=== PATIENT | female | born 1955 | race Caucasian/White ===

== ENCOUNTER 2016-12-09 08:38 | Emergency (ER) | payer MEDICARE, OTHER ==
[2016-12-09] MEDS ORDERED: Albuterol/Ipratropium 3.0-0.5 MG/3 ML Neb Soln NEB ONE (09:41)
[2016-12-09] MEDS ORDERED: predniSONE 20 MG Tab PO ONE (09:41)
--- NOTE | 2016-12-09 09:42 | EDM.PDOC ---
ED HPI GENERAL MEDICAL PROBLEM - General Chief Complaint: Respiratory Problem Stated Complaint: BREATHING PROBLEMS Time Seen by Provider: 12/09/16 09:17 Source of Information: Reports: Patient, Family History Limitations: Reports: No Limitations - History of Present Illness INITIAL COMMENTS - FREE TEXT/NARRATIVE: HISTORY AND PHYSICAL: History of present illness: [61-year-old female with no significant past medical history no prior pulmonary history, now presents to the emergency department complaining of persistent cough for more than a month intermittently productive sometimes with wheezing. Patient was initially seen about 6 weeks ago prescribed a Z-Kwaku steroids and inhaler. Her symptoms improved somewhat but returned. She was seen more recently and told that she had asthma. Patient has not been on any antibiotics last 6 weeks. Denies fevers chills sweats or shaking chills. She has not been out of the country nor been in any high risk environments for tuberculosis transmission. she smoked briefly in her 20s no history of asthma second hand smoke or occupational dust or smoke exposure. Patient states she does have a history of seasonal allergies. Patient had a recent negative chest x-ray at and ER in [place]. She is traveling away from home for months Review of systems: As per history of present illness and below otherwise all systems reviewed and negative. Past medical history: As per history of present illness and as reviewed below otherwise noncontributory. Surgical history: As per history of present illness and as reviewed below otherwise noncontributory. Social history: No reported history of drug or alcohol abuse. Family history: As per history of present illness and as reviewed below otherwise noncontributory. Physical exam: Patient is well-appearing no acute distress no tachypnea normal respiratory rate and pulse ox alert and communicative wearing her own TB mask which she uses chronically to shield herself from environmental allergens HEENT: Atraumatic, normocephalic, pupils reactive, negative for conjunctival pallor or scleral icterus, mucous membranes moist, throat clear, neck supple, nontender, trachea midline. Lungs: Clear to auscultation, breath sounds equal bilaterally, chest nontender. Heart: S1S2, regular, negative for clicks, rubs, or JVD. Abdomen: Soft, nondistended, nontender. Negative for masses or hepatosplenomegaly. Negative for costovertebral tenderness. Pelvis: Stable nontender. Genitourinary: Deferred. Rectal: Deferred. Extremities: Atraumatic, negative for cords or calf pain. Neurovascular unremarkable. Neuro: Awake, alert, oriented. Cranial nerves grossly unremarkable. Cerebellum unremarkable. Motor and sensory unremarkable throughout. Exam nonfocal. Diagnostics: [Chest x-ray PA and lateral No consolidated infiltrate and interpreted by me report reviewed] Therapeutics: [DuoNeb] Impression: [Atypical pneumonia] Plan: [Signs and symptoms consistent with persistent lung condition of 6 weeks ago suggestive of walking pneumonia versus less likely pertussis patient does have a mild bronchospastic component however those findings of bronchospasm a unilateral today on the left. Chest x-ray PA and lateral pending. Nebulize therapy administered as well as steroids] Signs and symptoms consistent with pulmonary infection atypical pneumonia versus bacterial pneumonia. Patient is well-appearing with normal respiratory rate and pulse ox multiple reexamines. Chest x-ray with no consolidated infiltrate and history consistent with atypical pneumonia. Doxycycline prescription dispensed. Patient is aware to continue use her inhalers including a steroid inhaler as needed. Recommended her to use Mucinex DM [id number] as well as salon as present prescribed. Patient will follow with PCP for reevaluation and if her symptoms do not resolve eventually she could be referred to a child day care center worker. Definitive disposition and diagnosis as appropriate pending reevaluation and review of above. chest pressure Pain Score (Numeric/FACES): 3 - Related Data Allergies Allergy/AdvReac Type Severity Reaction Status Date / Time No Known Allergies Allergy Verified 12/09/16 08:53 Home Meds: Home Meds Albuterol Sulfate [Proair Hfa] 8.5 gm IH BID PRN 12/09/16 [History] Benzonatate [Tessalon Perles] 100 mg PO TID 12/09/16 [History] Doxycycline [Vibramycin] 100 mg PO Q12HR #20 cap 12/09/16 [Rx] Fluticasone Propionate [Flovent] 1 puff IH BID 12/09/16 [History] Ipratropium/Albuterol Sulfate [Combivent Respimat Inhal [employer]] 4 gm IH DAILY [History] Loratadine/Pseudoephedrine [Claritin-D 24 Hour Tablet] 1 each PO DAILY 12/09/16 [History] predniSONE 20 mg PO ONETIME 12/09/16 [History] Past Medical History Cardiovascular History: Reports: Hypertension Respiratory History: Reports: Asthma Gastrointestinal History: Reports: Cholelithiasis Musculoskeletal History: Reports: Fibromyalgia - Past Surgical History HEENT Surgical History: Reports: Tonsillectomy GI Surgical History: Reports: Cholecystectomy Female Surgical History: Reports: Hysterectomy Dermatological Surgical History: Reports: Other (See Below) Social & Family History - Family History Family Medical History: Noncontributory - Tobacco Use Smoking Status *Q: Former Smoker Used Tobacco, but Quit: Yes Month Tobacco Last Used: 1986 - Recreational Drug Use Recreational Drug Use: No ED ROS GENERAL - Review of Systems Review Of Systems: See Below (History of present illness) ED EXAM, GENERAL - Physical Exam Exam: See Below (History of present illness) Course - Vital Signs Last Recorded V/S: Last Vital Signs Temp 35.6 C 12/09/16 08:53 Pulse 71 12/09/16 11:00 Resp 18 12/09/16 11:00 BP 141/85 H 12/09/16 11:00 Pulse Ox 96 12/09/16 11:00 - Orders/Labs/Meds Orders: Active Orders 24 hr Category Date Time Status EKG 12 Lead [EKG Documentation Completion] [RC] STAT Care 12/09/16 09:01 Active RT Aerosol Therapy [RC] ASDIRECTED Care 12/09/16 09:42 Active Chest 2V [CR] Stat Exams 12/09/16 09:29 Taken Meds: Medications Discontinued Medications Generic Name Dose Route Start Last Admin Trade Name Arleth PRN Reason Stop Dose Admin Albuterol/Ipratropium 3 ml 12/09/16 09:41 12/09/16 09:48 Duoneb 3.0-0.5 Mg/3 Ml NEB 12/09/16 09:42 3 ml ONETIME ONE Administration Prednisone 60 mg 12/09/16 09:41 12/09/16 09:47 Prednisone PO 12/09/16 09:42 60 mg ONETIME ONE Administration Departure - Departure Time of Disposition: 11:16 Disposition: Home, Self-Care 01 Condition: Good Clinical Impression: Atypical pneumonia - Discharge Information Prescriptions: Doxycycline [Vibramycin] 100 mg PO Q12HR #20 cap Referrals: PCP,None [Primary Care Provider] - Forms: ED Department Discharge Additional Instructions: Your findings suggest that you have atypical pneumonia with an element of bronchospasm. Finish doxycycline as prescribed today, use Tessalon as needed for cough as well as your inhalers as previously directed. Flovent, your steroid inhaler 2 puffs twice a day will help minimize any inflammatory component of your infection. Also consider Mucinex DM [id number] which contains dextromethorphan for cough and guaifenesin to break up mucus. Follow- up with your Dr. in 2 days and go to the nearest emergency department for new severe or worsening symptoms. Care Plan Goals: Jennifer KIMBROUGH Specialty: Pulmonary Medicine [address] Building: [place], [place] Priyank Graham MD Specialty: Pulmonary Medicine [address]: [place], [place] Adarsh Childress MD - Fatuma Jeffrey - LUIS E - Agnes Man MD - Mitch Parra MD Specialty: Pulmonary Medicine [facility] [address] Toll Free: Website: [email or web address] Jigar Olivas MD Specialty: Pulmonary Medicine [address] Pablo Douglass MD Specialty: Pulmonary Medicine [place] [address] [address] [place], [place] Gerardo Riley MD Specialty: Pulmonary Medicine [address] Eda Nolasco MD Specialty: Pulmonary Medicine [address] Sarai Srinivasan MD Specialty: Pulmonary Medicine [address] Toll Free: - My Orders Last 24 Hours: My Active Orders 12/09/16 09:01 EKG 12 Lead [EKG Documentation Completion] [RC] STAT 12/09/16 09:29 Chest 2V [CR] Stat 12/09/16 09:42 RT Aerosol Therapy [RC] ASDIRECTED - Assessment/Plan Last 24 Hours: My Active Orders 12/09/16 09:01 EKG 12 Lead [EKG Documentation Completion] [RC] STAT 12/09/16 09:29 Chest 2V [CR] Stat 12/09/16 09:42 RT Aerosol Therapy [RC] ASDIRECTED
[2016-12-09 12:06] VITALS: BP 157/87
--- NOTE | 2016-12-10 13:44 | CR ---
EXAM DATE: 12/09/16 PATIENT'S AGE: 61 Patient: [address] Facility: [place], [place] Site . Site : [id number] Study: XRay Chest [id number]/30/2017 9:43:35 AM Ordering Physician: Barrington Chaney Final Report: CHEST 2 VIEWS INDICATION: Cough IMPRESSION: Normal heart size and vascular pattern. Lungs are clear. No pneumothorax or pleural abnormality. Dictated by Sameer De Oliveira MD @ Dec 09 2016 10:01AM (Electronic Signature) Report Signed by Proxy. [facility]
== END 2016-12-09 12:01 | disposition home or self-care (01) ==
LOC: MW.ED 08:38
DX: J18.9 Pneumonia, unspecified organism (principal); I10 Essential (primary) hypertension; J45.909 Unspecified asthma, uncomplicated; Z90.49 Acquired absence of other specified parts of digestive tract; Z79.899 Other long term (current) drug therapy; Z90.710 Acquired absence of both cervix and uterus; Z87.891 Personal history of nicotine dependence
CPT/HCPCS: 71020; 93005; 94664; 99284; A9270; 99283